=== PATIENT | male | born 1995 | race Caucasian/White ===

== ENCOUNTER → 2017-11-17 | Outpatient (CLI) | payer SELFPAY | END | disposition home or self-care (01) | LOC: LAB EV 14:56 | DX: L40.4 Guttate psoriasis (principal) | CPT/HCPCS: 87070 ==

== ENCOUNTER → 2017-11-19 | Outpatient (CLI) | payer BC | LOC: PLD 08:02 → LAB SHORT 08:02 | DX: L98.9 Disorder of the skin and subcutaneous tissue, unspecified (principal) | CPT/HCPCS: 88305; 88312 ==